=== PATIENT | female | born 1970 | race American Indian/Alaskan Native ===

== ENCOUNTER 2018-01-29 09:05 | Emergency (ER) | payer MEDICAID ==
[2018-01-29 09:11] VITALS: BP 136/80
[2018-01-29] MEDS ORDERED: ZOFRAN ODT PO ONE (10:31)
[2018-01-29] MEDS ORDERED: NORCO 5/325 PO ONE (10:31)
--- NOTE | 2018-01-29 10:34 | Emergency Department Report ---
Carolyn Doc - Documentation Documentation: 47 yo female doesn't M past medical history presents to the hospital with persistent forehead pain after being struck by a trunk 1 week ago. A spring broke on the car trunk causing it to strike her forehead. No LOC reported. Patient continues to have pain to her forehead but the area of swelling is improving. She trying multiple rekk-kzw-cxefxlm medications including prescribed Naprosyn without relief. Positive nausea without vomiting, blurred vision, focal numbness, or focal weakness. No neck pain reported. PMD: Dr. Chang Patient has a superficial abrasion to forehead with tenderness to this area. No nuchal rigidity NIH stroke scale 0 CT head due to persistent headache Nathalie this patient is not driving [employer] to follow
--- NOTE | 2018-01-29 10:46 | Emergency Department Report ---
ED Headache HPI - General Chief Complaint: Head Injury Stated Complaint: HEADACHE Time Seen by Provider: 01/29/18 10:20 - History of Present Illness Initial Comments: 47 yo female doesn't not havepast medical history presents to the hospital with persistent forehead pain after being struck by a trunk 1 week ago. A spring broke on the car trunk causing it to strike her forehead. No LOC reported. Patient continues to have pain to her forehead but the area of swelling is improving. She trying multiple nipt-fqk-smqpnyp medications including prescribed Naprosyn without relief. Positive nausea without vomiting , blurred vision, focal numbness, or focal weakness. Pain is 5 out of 10 located frontally. No alleviating accessibility and factors No neck pain reported. PMD: Dr. Chang Timing/Duration: 1 week Quality: moderate, achy Head Injury Location: frontal (forehead) Recent Head Trauma: head trauma > 24 hrs ago (1 week ago) Modifying Factors: improves with: other (none) Associated Symptoms: denies: confusion, fatigue, facial pain, fever/chills, flushing, loss of consciousness, nausea/vomiting, nasal congestion, nasal drainage, numbness in legs/feet, rash, seizures, sinus infection, stiff neck, vision changes, weakness Allergies/Adverse Reactions: Allergies No Known Allergies Allergy (Verified 01/29/18 09:12) Home Medications: Ambulatory Orders HYDROcodone/APAP 5-325 [Mclean 5/325] 1 each PO Q6HR PRN #12 tablet 01/29/18 Ibuprofen [Motrin] 600 mg PO Q8H PRN #15 tablet 01/29/18 Ondansetron [Zofran Odt] 4 mg PO Q8H PRN #12 tab.rapdis 01/29/18 ED Review of Systems ROS: Stated complaint: HEADACHE Other details as noted in HPI Constitutional: denies: chills, fever Eyes: denies: eye pain, eye discharge, vision change ENT: denies: ear pain, throat pain, congestion Respiratory: denies: cough, shortness of breath, SOB with exertion, SOB at rest , wheezing Cardiovascular: denies: chest pain, palpitations, edema, syncope Gastrointestinal: nausea, vomiting. denies: abdominal pain, diarrhea, constipation, hematemesis, hematochezia Genitourinary: denies: discharge Musculoskeletal: denies: back pain, joint swelling, arthralgia Skin: denies: rash, lesions Neurological: headache. denies: numbness, paresthesias, confusion, abnormal gait, vertigo ED Past Medical Hx - Past Medical History Previous Medical History?: No - Surgical History Past Surgical History?: Yes Additional Surgical History: x 3 - Family History Family history: hypertension - Social History Smoking Status: Former Smoker Substance Use Type: Alcohol - Medications Home Medications: Home Medications Medication Instructions Recorded Confirmed Last Taken Type HYDROcodone/APAP 5-325 [Mclean 1 each PO Q6HR PRN #12 tablet 01/29/18 Unknown Rx 5/325] Ibuprofen [Motrin] 600 mg PO Q8H PRN #15 tablet 01/29/18 Unknown Rx Ondansetron [Zofran Odt] 4 mg PO Q8H PRN #12 tab.rapdis 01/29/18 Unknown Rx ED Physical Exam - General Limitations: No Limitations General appearance: alert, in no apparent distress - Head Head exam: Present: atraumatic, normocephalic, normal inspection - Expanded Head Exam Expanded Head exam: Present: contusion (minimal contusion to the mid forehead). Absent: laceration, abrasion, hematoma, racoon eyes, acosta's sign, general tenderness, tenderness of temporal artery, CSF rhinorrhea, CSF otorrhea - Eye Eye exam: Present: normal appearance, PERRL, EOMI. Absent: nystagmus, periorbital tenderness Pupils: Present: normal accommodation - ENT ENT exam: Present: normal exam, normal orophraynx, mucous membranes moist, TM's normal bilaterally, normal external ear exam - Neck Neck exam: Present: normal inspection, full ROM, other (no C-spine tenderness). Absent: tenderness, lymphadenopathy - Respiratory Respiratory exam: Present: normal lung sounds bilaterally. Absent: respiratory distress, chest wall tenderness - Cardiovascular Cardiovascular Exam: Present: regular rate, normal rhythm, normal heart sounds. Absent: systolic murmur, diastolic murmur - GI/Abdominal GI/Abdominal exam: Present: soft, normal bowel sounds. Absent: distended, tenderness, guarding, rebound, rigid - Extremities Exam Extremities exam: Present: normal inspection, full ROM, normal capillary refill , other (No cce. + 2 pulses in all extremities, no neurovascular compromise). Absent: tenderness, pedal edema, joint swelling, calf tenderness - Back Exam Back exam: Present: normal inspection, full ROM, other (ambulates without any difficulties). Absent: tenderness, CVA tenderness (R), CVA tenderness (L), muscle spasm, paraspinal tenderness, vertebral tenderness, rash noted - Neurological Exam Neurological exam: Present: alert, oriented X3 - Psychiatric Psychiatric exam: Present: normal affect, normal mood - Skin Skin exam: Present: warm, dry, intact, normal color, other (minor contusion mid forehead). Absent: rash ED Course Vital Signs 01/29/18 01/29/18 01/29/18 09:09 10:56 11:35 Temperature 98.4 F Pulse Rate 62 Respiratory 18 18 18 Rate Blood Pressure 136/80 O2 Sat by Pulse 100 Oximetry - Reevaluation(s) Reevaluation #1: 01/29/18 12:26 Patient received hydrocodone 5/325 1 tablets by mouth for headache which relieved her headache and Zofran 4 mg ODT which relieved her nausea. She says she is feeling a lot better. 01/29/18 12:26 ED Medical Decision Making - Radiology Data Radiology results: report reviewed Patient had CT scan of head and brain without contrast that was dictated by radiologist and report reviewed by myself. No acute findings. Patient: IESHA SHELLEY MR#: [id number] : 1970 Acct:[id number] Age/Sex: 47 / F ADM Date: 01/29/18 Loc: ED Attending Dr: Ordering Physician: ANTHONY ANNA MD Date of Service: 01/29/18 Procedure(s): CT head/brain wo con Accession Number(s): [id number] cc: ANTHONY ANNA MD CRANIAL CT SCAN: Forehead injury with headache. Serial contiguous axial images were obtained through the cranium. Intravenous contrast material was not administered. The ventricles are normal in size and appearance. There is no mass effect or midline shift. No areas of abnormally increased or decreased attenuation are seen. No mass lesion is seen. The mastoid air cells and visualized portions of the sinuses are normal. IMPRESSION: Cranial CT scan within normal limits. Transcribed By: BRIDGETT Dictated By: ABELARDO MCCLELLAN MD Electronically Authenticated By: ABELARDO MCCLELLAN MD Signed Date/Time: 01/29/18 104 DD/ 1042 TD/TT: 01/29/18 1043 - Medical Decision Making This is 47-year-old female that reports that she injured her head on the forehead on the trunk of car 1 week ago and she is still having headache. Positive nausea vomiting or any other symptoms. Patient stated be evaluated. Patient was seen and examined by myself. She was screened by Dr. Anna and orders placed. Patient and physical exam including neurological exam normal findings except she has very minimal contusion to her mid forehead. CT scan of the head and brain without contrast shows no acute findings. This was dictated by radiologist's report reviewed by myself. I explained diagnosis and treatment plan to patient she was understanding. Patient was given Mclean 5/325 one tablet by mouth and Zofran 4 mg ODT and she was observed in emergency room and headache has resolved and she has an episode of nausea. Neurological status remained intact throughout ED stay. Patient is stable and discharged home with prescription for Mclean, Motrin and Zofran and to follow-up with neurology and her primary care physician in 3 days and/or to return to the emergency room [facility]IL[facility] if her symptoms return. She voiced understanding Critical care attestation.: If time is entered above; I have spent that time in minutes in the direct care of this critically ill patient, excluding procedure time. ED Disposition Clinical Impression: Nausea alone Headache Qualifiers: Headache type: post-traumatic Headache chronicity pattern: acute headache Intractability: not intractable Qualified Code(s): G44.319 - Acute post- traumatic headache, not intractable Head injury, closed, without LOC Qualifiers: Encounter type: initial encounter Qualified Code(s): S09.90XA - Unspecified injury of head, initial encounter Disposition: DC-01 TO HOME OR SELFCARE Is pt being admited?: No Does the pt Need Aspirin: No Condition: Stable Instructions: Acute Nausea and Vomiting (ED), Acute Headache (ED), Minor Head Injury (ED) Additional Instructions: Please follow up with neurologist as instructed in 3 days Follow-up with your primary care physician Dr. 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
--- NOTE | 2018-01-29 11:02 | Cat Scan Report ---
CRANIAL CT SCAN: Forehead injury with headache. Serial contiguous axial images were obtained through the cranium. Intravenous contrast material was not administered. The ventricles are normal in size and appearance. There is no mass effect or midline shift. No areas of abnormally increased or decreased attenuation are seen. No mass lesion is seen. The mastoid air cells and visualized portions of the sinuses are normal. IMPRESSION: Cranial CT scan within normal limits.
== END 2018-01-29 12:46 | disposition home or self-care (01) ==
LOC: ED 09:05
DX: S09.90XA Unspecified injury of head, initial encounter (principal); W22.8XXA Striking against or struck by other objects, initial encounter; Y93.89 Activity, other specified; Y92.89 Other specified places as the place of occurrence of the external cause; Y99.8 Other external cause status
CPT/HCPCS: 70450; Q0162